=== PATIENT | female | born 1985 | race Caucasian/White ===

== ENCOUNTER 2017-11-21 20:23 | Inpatient (IN) | payer OTHER ==
[~2017-11-21] VITALS: Ht 160 cm; Wt 86.0 kg
[2017-11-21 21:00] VITALS: BP 127/82
[2017-11-21] MEDS ORDERED: OXYTOCIN 30U/ 0.9% NaCL 500ML 500 ML IV ONE (21:31)
[2017-11-21] MEDS: D5%-LACTATED RINGERS 1,000 ML IV SCH (21:31)
[2017-11-21 21:58] LABS: BASOPHILS % (AUTO) 0 % (0-1); EOSINOPHILS # (AUTO) 0.15 x10^3/uL (0-0.4); EOSINOPHILS % (AUTO) 1 % (1-7); LYMPHOCYTES # (AUTO) 2.18 x10^3/uL (1-3.4); LYMPHOCYTES % (AUTO) 16 % (22-44); MD NO; MEAN CORPUSCULAR HEMOGLOBIN 31.6 pg (27.0-34.8); MEAN CORPUSCULAR VOLUME 92.7 fL (80-100); MEAN PLATELET VOLUME 8.5 fL (7.4-10.4); MONOCYTES % (AUTO) 4 % (2-9); NEUTROPHILS # (AUTO) 10.87 x10^3/uL (1.8-6.8); NEUTROPHILS % (AUTO) 79 % (42-75); PLATELET COUNT 256 x10^3/uL (130-400); RED BLOOD COUNT 4.08 x10^6/uL (3.82-5.3)
[2017-11-21] MEDS ORDERED: CALCIUM CARBONATE 500 MG TAB.CHEW PO PRN (22:00)
[2017-11-21] MEDS ORDERED: SODIUM CITRATE/CITRIC ACID 30 ML UDC PO PRN (22:00)
[2017-11-21] MEDS ORDERED: FENTANYL PF 100 MCG/2ML IV PRN (22:00)
[2017-11-21] MEDS ORDERED: METOCLOPRAMIDE 5 MG/ML, 2ML IVPush PRN (22:00)
[2017-11-21] MEDS ORDERED: OXYTOCIN 30U/ 0.9% NaCL 500ML 500 ML ONE (22:02)
[2017-11-21] MEDS ORDERED: NEWBORN KIT ONE (22:02)
[2017-11-21] MEDS ORDERED: OXYTOCIN 30U/ 0.9% NaCL 500ML 500 ML IV PRN (22:22)
[2017-11-21] MEDS ORDERED: ONDANSETRON 2MG/ML, 2ML ONE (22:30)
[2017-11-21] MEDS: ONDANSETRON 2MG/ML, 2ML IVPush PRN (22:33)
[2017-11-21] MEDS ORDERED: FENTANYL PF 100 MCG/2ML ONE (22:57)
[2017-11-21] MEDS: FENTANYL PF 100 MCG/2ML IVPush PRN (23:01)
[2017-11-22] MEDS ORDERED: FENTANYL PF 100 MCG/2ML ONE ×2 (00:47→01:11)
[2017-11-22] MEDS: LACTATED RINGERS 1,000 ML IV SCH ×5 (00:51→13:31)
[2017-11-22] MEDS: FENTANYL PF 100 MCG/2ML IVPush PRN (00:51)
[2017-11-22] MEDS ORDERED: FENTANYL/BUPIV./NS/PF 250 ML EPIDCONT ONE (01:11)
[2017-11-22] MEDS ORDERED: BUPIVACAINE 0.25% ONE (01:11)
[2017-11-22] MEDS ORDERED: FENTANYL/BUPIV./NS/PF 250 ML EPIDCONT SCH (01:36)
[2017-11-22] MEDS ORDERED: LACTATED RINGERS 1,000 ML IVBOLUS PRN (02:00)
[2017-11-22] MEDS: D5%-LACTATED RINGERS 1,000 ML IV SCH ×2 (05:31→13:31)
[2017-11-22] MEDS ORDERED: ACETAMINOPHEN 325 MG TABLET ONE (06:28)
[2017-11-22 07:00] VITALS: BP 112/68
[2017-11-22] MEDS ORDERED: ONDANSETRON 2MG/ML, 2ML ONE (10:28)
[2017-11-22] MEDS: ONDANSETRON 2MG/ML, 2ML IVPush PRN (10:30)
[2017-11-22] MEDS ORDERED: METOCLOPRAMIDE 5 MG/ML, 2ML ONE (11:25)
[2017-11-22] MEDS ORDERED: MISOPROSTOL 200 MCG TABLET PR PRN (12:00)
[2017-11-22] MEDS ORDERED: OXYTOCIN 30U/ 0.9% NaCL 500ML 500 ML IV SCH (12:00)
[2017-11-22] MEDS ORDERED: OXYcodone/APAP 5/325MG TABLET PO PRN (12:00)
[2017-11-22] MEDS ORDERED: OXYTOCIN 30U/ 0.9% NaCL 500ML 500 ML ONE (12:48)
[2017-11-22 15:23] VITALS: BP 109/74
[2017-11-22 20:00] VITALS: BP 115/78
[2017-11-22] MEDS: IBUPROFEN 600 MG TABLET PO PRN (20:14)
[2017-11-22] MEDS: DOCUSATE 100 MG CAPSULE PO PRN (20:14)
[2017-11-22 20:15] LABS: MEAN CORPUSCULAR HEMOGLOBIN 31.7 pg (27.0-34.8); MEAN CORPUSCULAR VOLUME 93.1 fL (80-100); MEAN PLATELET VOLUME 8.5 fL (7.4-10.4); PLATELET COUNT 239 x10^3/uL (130-400); RED BLOOD COUNT 3.65 x10^6/uL (3.82-5.3); RED CELL DISTRIBUTION WIDTH 13.9 % (9.6-15.2)
[2017-11-22 20:31] LABS: MD YES
[2017-11-22 20:32] LABS: BAND#(MANUAL) 1.22 x10^3/uL; BANDS%(MANUAL) 6 % (0-7); LYMPH#(MANUAL) 2.64 x10^3/uL (1-3.4); LYMPHS% (MANUAL) 13 % (22-44); MONOS#(MANUAL) 0.81 x10^3/uL (0.3-2.7); MONOS% (MANUAL) 4 % (2-9); SEG#(MANUAL) 15.63 x10^3/uL (1.8-6.8); SEGS% (MANUAL) 77 % (42-75)
[2017-11-22 20:33] LABS: <PLATELET ESTIMATE> ADEQUATE; <RBC MORPHOLOGY> NORMAL
[2017-11-22 20:34] LABS: LARGE PLATELETS 1+
[2017-11-23 01:10] VITALS: BP 99/66
[2017-11-23] MEDS: IBUPROFEN 600 MG TABLET PO PRN ×2 (02:59→09:26)
[2017-11-23 03:17] VITALS: BP 95/63
[2017-11-23 07:14] VITALS: BP 113/65
[2017-11-23] MEDS ORDERED: PRENATAL VIT/IRON/FA 1 EACH TABLET PO SCH (09:00)
[2017-11-23] MEDS: DOCUSATE 100 MG CAPSULE PO PRN (09:26)
[2017-11-23] MEDS ORDERED: OXYC-302 PO (13:46)
[2017-11-23] MEDS ORDERED: IBUP-1223 PO (13:46)
== END 2017-11-23 16:08 | disposition home or self-care (01) | DRG 775 ==
LOC: LDOP 20:23 → LDIP 21:36 → 2NW 11-22 14:46
PROVIDERS: ADMIT Obstetrics & Gynecology; ATTEND Obstetrics & Gynecology
PROC: 10E0XZZ Delivery of Products of Conception, External Approach (ICD-10-PCS; principal; 2017-11-22)
PROC: 0HQ9XZZ Repair Perineum Skin, External Approach (ICD-10-PCS; 2017-11-22)
PROC: 3E0R3BZ Introduction of Anesthetic Agent into Spinal Canal, Percutaneous Approach (ICD-10-PCS; 2017-11-22)
PROC: 00HU33Z Insertion of Infusion Device into Spinal Canal, Percutaneous Approach (ICD-10-PCS; 2017-11-22)
DX: O69.81X0 Labor and delivery complicated by cord around neck, without compression, not applicable or unspecified (principal); O70.0 First degree perineal laceration during delivery; Z37.0 Single live birth; Z3A.39 39 weeks gestation of pregnancy
CPT/HCPCS: 36415; 85025; 86850; 86900; 89060; J2405; J3010; J3490; J2590; J2765; J7120; Q0114